=== PATIENT | female | born 1995 | race American Indian/Alaskan Native ===

== ENCOUNTER 2021-04-08 09:51 | Emergency (ER) | payer SELFPAY ==
[2021-04-08] MEDS ORDERED: CLINDAMYCIN 150 MG/ML 2 ML VIAL IM ONE (11:33)
[2021-04-08] MEDS ORDERED: HYDROcodone/ACETAMINOPHEN 10-325MG TAB PO ONE (11:33)
[2021-04-08] MEDS ORDERED: predniSONE 20 MG TAB PO ONE (11:33)
--- NOTE | 2021-04-08 12:19 | Emergency Department Report ---
ED ENT HPI - General Chief complaint: Dental/Oral Stated complaint: BACK PAIN/TOOTHACHE/EARACHE Time Seen by Provider: 04/08/21 11:16 Source: patient Mode of arrival: Ambulatory Limitations: No Limitations - History of Present Illness Initial comments: This is a 25-year-old female nontoxic, well nourished in appearance, no acute signs of distress presents to the ED with c/o of right sided headache, earache, and toothache. Stated has toothache for about 1 month and now has some slight swelling to right upper mandible as well. Denies any pus or drainage. Patient describes headache as diffuse with level of 8 out of 10. Patient denies thunderclap headache. Patient denies any radiation of pain. Patient denies any head trauma. Patient denies any visual changes. Patient denies worse headache. Denies any trismus. Patient denies any numbness, tingling, fever, chills, stiff neck, abdominal pain, chest pain, shortness of breath. Patient denies any drug allergies or significant past medical history. Patient denies facial drooping or one sided weakness. Patient denies being diagnosed with hypertension. Repeat blood pressure is within normal limits. MD complaint: tooth pain, other (headache) -: days(s) Location: tooth # 1 - Pain here Severity: mild Severity scale (0 -10): 8 Quality: burning, aching Consistency: constant Improves with: none Worsens with: none Associated Symptoms: gum swelling, toothache, other (Headache, right earache). denies: fever, cough, pain with swallowing, sore throat, tinnitus, hearing loss, discharge from ear, rhinorrhea - Related Data Previous Rx's Medication Instructions Recorded Last Taken Type Chlorhexidine Mouthwash [Peridex] 15 ml MM BID #1 bottle 04/08/21 Unknown Rx Clindamycin [Clindamycin CAP] 300 mg PO Q6H #28 capsule 04/08/21 Unknown Rx Naproxen 500 mg PO Q12H PRN #12 tablet 04/08/21 Unknown Rx Prednisone [predniSONE 10 mg 10 mg PO .TAPER #1 tab.ds.pk 04/08/21 Unknown Rx (6-Day Pack, 21 Tabs)] Allergies Allergy/AdvReac Type Severity Reaction Status Date / Time No Known Allergies Allergy Unverified 04/28/16 14:48 ED Dental HPI - General Chief complaint: Dental/Oral Stated complaint: BACK PAIN/TOOTHACHE/EARACHE Time Seen by Provider: 04/08/21 11:16 Source: patient Mode of arrival: Ambulatory Limitations: No Limitations - Related Data Previous Rx's Medication Instructions Recorded Last Taken Type Chlorhexidine Mouthwash [Peridex] 15 ml MM BID #1 bottle 04/08/21 Unknown Rx Clindamycin [Clindamycin CAP] 300 mg PO Q6H #28 capsule 04/08/21 Unknown Rx Naproxen 500 mg PO Q12H PRN #12 tablet 04/08/21 Unknown Rx Prednisone [predniSONE 10 mg 10 mg PO .TAPER #1 tab.ds.pk 04/08/21 Unknown Rx (6-Day Pack, 21 Tabs)] Allergies Allergy/AdvReac Type Severity Reaction Status Date / Time No Known Allergies Allergy Unverified 04/28/16 14:48 ED Review of Systems ROS: Stated complaint: BACK PAIN/TOOTHACHE/EARACHE Other details as noted in HPI Comment: All other systems reviewed and negative Constitutional: denies: chills, fever Eyes: denies: eye pain, eye discharge, vision change ENT: ear pain, dental pain. denies: throat pain, hearing loss, epistaxis, congestion Respiratory: denies: cough, shortness of breath, wheezing Cardiovascular: denies: chest pain, palpitations Endocrine: no symptoms reported Gastrointestinal: denies: abdominal pain, nausea, diarrhea Genitourinary: denies: urgency, dysuria, discharge Musculoskeletal: denies: back pain, joint swelling, arthralgia Skin: denies: rash, lesions Neurological: headache. denies: weakness, numbness, paresthesias, confusion, abnormal gait, vertigo Psychiatric: denies: anxiety, depression Hematological/Lymphatic: denies: easy bleeding, easy bruising ED Past Medical Hx - Past Medical History Previous Medical History?: No - Surgical History Past Surgical History?: Yes Hx Cholecystectomy: Yes - Social History Smoking Status: Current Every Day Smoker Substance Use Type: None - Medications Home Medications: Home Medications Medication Instructions Recorded Confirmed Last Taken Type Chlorhexidine Mouthwash [Peridex] 15 ml MM BID #1 bottle 04/08/21 Unknown Rx Clindamycin [Clindamycin CAP] 300 mg PO Q6H #28 capsule 04/08/21 Unknown Rx Naproxen 500 mg PO Q12H PRN #12 tablet 04/08/21 Unknown Rx Prednisone [predniSONE 10 mg 10 mg PO .TAPER #1 tab.ds.pk 04/08/21 Unknown Rx (6-Day Pack, 21 Tabs)] ED Physical Exam - General Limitations: No Limitations General appearance: alert, in no apparent distress - Head Head exam: Present: atraumatic, normocephalic - Eye Eye exam: Present: normal appearance, PERRL, EOMI - Expanded ENT Exam Expanded Ear exam: Present: normal external inspection Mouth exam: Present: normal external inspection, tongue normal. Absent: drool ing, trismus, muffled voice Teeth exam: Present: dental caries, fractured tooth #, dental tenderness #, gingival enlargement, other (Slight facial swelling with no induration or fluctuance. No abscess noted on exam. No pus or drainage.) Throat exam: Positive: normal inspection, other (Uvula midline.). Negative: tonsillar erythema, tonsillomegaly, tonsillar exudate, R peritonsillar mass, L peritonsillar mass - Neck Neck exam: Present: normal inspection, full ROM. Absent: tenderness, meningismus, lymphadenopathy - Respiratory Respiratory exam: Absent: respiratory distress - Cardiovascular Cardiovascular Exam: Present: regular rate - Extremities Exam Extremities exam: Present: full ROM - Back Exam Back exam: Present: full ROM - Neurological Exam Neurological exam: Present: alert, oriented X3, normal gait - Expanded Neurological Exam Expanded Patient oriented to: Present: person, place, time Cranial nerves: EOM's Intact: Normal, Facial Sensation: Normal Cerebellar function: Finger to Nose: Normal Upper motor neuron: Pronator Drift: Normal, Sensory Extinction: Normal Motor strength exam: RUE: 5, LUE: 5, RLE: 5, LLE: 5 Best Eye Response (Stefanie): (4) open spontaneously Best Motor Response ([place]): (6) obeys commands Best Verbal Response (Stefanie): (5) oriented [place] Total: 15 - Psychiatric Psychiatric exam: Present: normal affect, normal mood - Skin Skin exam: Present: warm, dry, intact, normal color. Absent: rash ED Course Vital Signs 04/08/21 04/08/21 04/08/21 10:34 10:38 11:44 Temperature 98.3 F 98.3 F Pulse Rate 73 73 Respiratory 13 17 20 Rate Blood Pressure 175/113 Blood Pressure 175/113 [Right] O2 Sat by Pulse 99 99 Oximetry 04/08/21 04/08/21 12:58 12:59 Temperature Pulse Rate 78 Respiratory 18 Rate Blood Pressure 131/89 Blood Pressure 131/89 [Right] O2 Sat by Pulse 97 Oximetry - Reevaluation(s) Reevaluation #1: 04/08/21 12:23 Patient is speaking in full sentences with no signs of distress noted. ED Medical Decision Making - Medical Decision Making This is a 25-year-old female that presents with gingivitis and dental caries. Patient is stable and was examined by me. There is slight swelling to the right upper mandible. Exam does not show that this is an abscess. There is no induration or fluctuance. I did give patient clindamycin 600 mg IM and prednisone in the ED and patient is discharged with clindamycin. He had strict instructions to follow-up with oral maxillary surgeon in 24 hours or if symptoms would worsen to return to emergency room as was possible. At time of discharge, the patient does not seem toxic or ill in appearance. No acute signs of distress noted. Patient agrees to discharge treatment plan of care. No further questions noted by the patient. Critical care attestation.: If time is entered above; I have spent that time in minutes in the direct care of this critically ill patient, excluding procedure time. ED Disposition Clinical Impression: Dental abscess Disposition: DC- TO HOME OR SELFCARE Is pt being admited?: No Does the pt Need Aspirin: No Condition: Stable Instructions: Dental Abscess, [id number] Additional Instructions: Follow-up with a oral surgeon within 24 hours or if symptoms worsen and continue return to emergency room as soon as possible. [facility] [employer] Address: [address], [place] [address] Hours: Friday 8AM-1PM, 2-5PM Friday 8AM-1PM, 2-5PM Friday 8AM-1PM, 2-5PM 8AM-1PM, 2-5PM Friday 7AM-2PM Friday Closed Prescriptions: Clindamycin [Clindamycin CAP] 300 mg PO Q6H #28 capsule Naproxen 500 mg PO Q12H PRN #12 tablet PRN Reason: Pain , Severe (7-10) Chlorhexidine Mouthwash [Peridex] 15 ml MM BID #1 bottle Prednisone [predniSONE 10 mg (6-Day Pack, 21 Tabs)] 10 mg PO .TAPER #1 tab.ds.pk Referrals: PRIMARY CAREMD [Primary Care Provider] - 3-5 Days AGGIE COTA MD [Staff Physician] - 3-5 Days [facility] [Outside] - 3-5 Days [facility] [Outside] - 3-5 Days Forms: Work/School Release Form(ED) Time of Disposition: 13:11
[2021-04-08 13:57] VITALS: BP 144/95
== END 2021-04-08 14:39 | disposition home or self-care (01) ==
LOC: ED 09:51
DX: K04.7 Periapical abscess without sinus (principal); R51.9 Headache, unspecified; F17.200 Nicotine dependence, unspecified, uncomplicated; Z90.49 Acquired absence of other specified parts of digestive tract; Z98.890 Other specified postprocedural states; Z79.899 Other long term (current) drug therapy
CPT/HCPCS: 96372; 99282; J7512

== ENCOUNTER 2021-09-24 11:01 | Emergency (ER) | payer SELFPAY ==
[2021-09-24 12:54] LABS: HCG Qualitative,Urine Negative (Negative)
[2021-09-24] MEDS ORDERED: CYCLOBENZAPRINE 10 MG TAB PO ONE (12:58)
[2021-09-24] MEDS ORDERED: KETOROLAC 60 MG/2 ML INJ IM ONE (12:58)
[2021-09-24 13:00] LABS: Bilirubin,Urine NEG (Negative); Blood,Urine NEG (Negative); Color,Urine Yellow (Yellow); Mucus,Urine FEW /HPF; Protein,Urine <15 mg/dL mg/dL (Negative); Urobilinogen,Urine < 2.0 mg/dL (<2.0)
--- NOTE | 2021-09-24 13:12 | Emergency Department Report ---
ED Back Pain/Injury HPI - General Chief Complaint: Back Pain/Injury Stated Complaint: Back pain, headache, nausea Time Seen by Provider: 09/24/21 11:54 Source: patient Limitations: No Limitations - History of Present Illness Initial Comments: Patient is a 26-year-old female presents emergency room complaints of right upper back pain that began yesterday. She denies any fall or injury. She states her pain is worse with movement. 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 She denies any specific injury while lifting packages. She denies any fever, nausea, vomiting, diarrhea, chest pain, shortness of breath, numbness, weakness, bowel or bladder incontinence. She states that she has been having some urinary frequency and stronger urine smell. She denies any abdominal pain, dysuria, vaginal bleeding, abnormal vaginal discharge. She denies any past medical history. She states her last menstrual cycle was 08/24/2021 and she reports that she does not know if she is . - Related Data Previous Rx's Medication Instructions Recorded Last Taken Type Chlorhexidine Mouthwash [Peridex] 15 ml MM BID #1 bottle 04/08/21 Unknown Rx Clindamycin [Clindamycin CAP] 300 mg PO Q6H #28 capsule 04/08/21 Unknown Rx Naproxen 500 mg PO Q12H PRN #12 tablet 04/08/21 Unknown Rx Prednisone [predniSONE 10 mg 10 mg PO .TAPER #1 tab.ds.pk 04/08/21 Unknown Rx (6-Day Pack, 21 Tabs)] Menthol/Camphor [Kaufman [place] 1 applicatio TP BID #18 oint...g. 09/24/21 Unknown Rx Ointment] Naproxen 500 mg PO BID PRN #14 tablet 09/24/21 Unknown Rx methOCARBAMOL [Robaxin TAB] 500 mg PO BID PRN #14 tab 09/24/21 Unknown Rx Allergies Allergy/AdvReac Type Severity Reaction Status Date / Time No Known Allergies Allergy Verified 09/24/21 11:41 ED Review of Systems ROS: Stated complaint: Back pain, headache, nausea Other details as noted in HPI Comment: All other systems reviewed and negative ED Past Medical Hx - Surgical History Hx Cholecystectomy: Yes - Social History Smoking Status: Current Every Day Smoker Substance Use Type: Alcohol, Marijuana - Medications Home Medications: Home Medications Medication Instructions Recorded Confirmed Last Taken Type Chlorhexidine Mouthwash [Peridex] 15 ml MM BID #1 bottle 04/08/21 Unknown Rx Clindamycin [Clindamycin CAP] 300 mg PO Q6H #28 capsule 04/08/21 Unknown Rx Naproxen 500 mg PO Q12H PRN #12 tablet 04/08/21 Unknown Rx Prednisone [predniSONE 10 mg 10 mg PO .TAPER #1 tab.ds.pk 04/08/21 Unknown Rx (6-Day Pack, 21 Tabs)] Menthol/Camphor [[place] 1 applicatio TP BID #18 oint...g. 09/24/21 Unknown Rx Ointment] Naproxen 500 mg PO BID PRN #14 tablet 09/24/21 Unknown Rx methOCARBAMOL [Robaxin TAB] 500 mg PO BID PRN #14 tab 09/24/21 Unknown Rx ED Physical Exam - General Limitations: No Limitations General appearance: alert, in no apparent distress - Head Head exam: Present: atraumatic, normocephalic - Eye Eye exam: Present: normal appearance - ENT ENT exam: Present: mucous membranes moist - Neck Neck exam: Present: normal inspection, full ROM. Absent: tenderness, meningismus - Respiratory Respiratory exam: Present: normal lung sounds bilaterally. Absent: respiratory distress, wheezes, rales, rhonchi, stridor, chest wall tenderness, accessory muscle use, decreased breath sounds, prolonged expiratory - Cardiovascular Cardiovascular Exam: Present: regular rate, normal rhythm, normal heart sounds. Absent: systolic murmur, diastolic murmur, rubs, gallop - Back Exam Back exam: Present: normal inspection, full ROM, paraspinal tenderness (right sided t-spine paraspinal ttp, no midline c-spine, t-spine or l-spine ttp, no step offs, no deformities). Absent: vertebral tenderness - Neurological Exam Neurological exam: Present: alert, oriented X3, CN II-XII intact, normal gait. Absent: motor sensory deficit - Psychiatric Psychiatric exam: Present: normal affect, normal mood - Skin Skin exam: Present: warm, dry, intact ED Course Vital Signs 09/24/21 09/24/21 11:40 14:06 Temperature 98.8 F 98.9 F Pulse Rate 100 H 78 Respiratory 18 16 Rate Blood Pressure 172/100 137/95 [Left] O2 Sat by Pulse 100 100 Oximetry ED Medical Decision Making - Lab Data Vital Signs 09/24/21 09/24/21 11:40 14:06 Temperature 98.8 F 98.9 F Pulse Rate 100 H 78 Respiratory 18 16 Rate Blood Pressure 172/100 137/95 [Left] O2 Sat by Pulse 100 100 Oximetry - Medical Decision Making Patient is a 26-year-old female presents emergency room complaints of right upper back pain that began yesterday. She denies any fall or injury. She s tates her pain is worse with movement. 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 She denies any specific injury while lifting packages. She denies any fever, nausea, vomiting, diarrhea, chest pain, shortness of breath, numbness, weakness, bowel or bladder incontinence. She states that she has been having some urinary frequency and stronger urine smell. She denies any abdominal pain, dysuria, vaginal bleeding, abnormal vaginal discharge. She denies any past medical history. She states her last menstrual cycle was 08/24/2021 and she reports that she does not know if she is . Initial vitals with mild tachycardia and elevated blood pressure which improved upon repeat. On exam:right sided t-spine paraspinal ttp, no midline c-spine, t-spine or l-spine ttp, no step offs, no deformities. UA is within normal limits. Urine is negative. Patient given medications on the emergency department with improvement of symptoms. Patient has no red flag warning signs of back pain, no trauma, no unexplained weight loss, no neuro deficits, age is not greater than 50, no fever, no IV drug use, no steroid use, no history of cancer. Patient given prescription for medications. Advised patient Please use medication as prescribed. May use ice pack, heating pad, rest, and epsom salt bath. Do not use heat or ice while using Kaufman balm. Follow-up with your primary care doctor. Follow-up with a software computer specialist. Return to emergency room for any new or worsening symptoms. Critical care attestation.: If time is entered above; I have spent that time in minutes in the direct care of this critically ill patient, excluding procedure time. ED Disposition Clinical Impression: Back pain Qualifiers: Back pain location: thoracic back pain Chronicity: acute Back pain laterality: right Qualified Code(s): M54.6 - Pain in thoracic spine Disposition: 01 HOME / SELF CARE / HOMELESS Is pt being admited?: No Does the pt Need Aspirin: No Condition: Stable Instructions: Acute Back Pain, Adult Additional Instructions: Please use medication as prescribed. May use ice pack, heating pad, rest, and epsom salt bath. Do not use heat or ice while using Kaufman balm. Follow-up with your primary care doctor. Follow-up with a software computer specialist. Return to emergency room for any new or worsening symptoms. Prescriptions: Naproxen 500 mg PO BID PRN #14 tablet PRN Reason: pain methOCARBAMOL [Robaxin TAB] 500 mg PO BID PRN #14 tab PRN Reason: pain/muscle spasm Menthol/Camphor [[place] Ointment] 1 applicatio TP BID #18 oint...g. Referrals: PRIMARY CARE, [Primary Care Provider] - 3-5 Days JESSE VILLALOBOS II, MD [Staff Physician] - 3-5 Days Time of Disposition: 13:11 Print Language: [id number]
[2021-09-24 14:07] VITALS: BP 137/95
== END 2021-09-24 14:07 | disposition home or self-care (01) ==
LOC: ED 11:01
DX: M54.6 Pain in thoracic spine (principal); R35.0 Frequency of micturition; F17.200 Nicotine dependence, unspecified, uncomplicated; F12.10 Cannabis abuse, uncomplicated; Z90.49 Acquired absence of other specified parts of digestive tract; Z79.899 Other long term (current) drug therapy
CPT/HCPCS: 81001; 81025; 96372; 99283; J1885